=== PATIENT | female | born 1995 | race Caucasian/White ===

== ENCOUNTER 2024-11-02 09:52 | Outpatient (CLI) | payer OTHER ==
[2024-11-02 11:09] LABS: Hematocrit 38.1 % (34.9-44.5); Hemoglobin 13.5 g/dL (12.0-15.5); Platelet Count 234 10x3/uL (150-450)
[2024-11-02 12:37] LABS: Hep B Surf Ag Non-Reactive S/CO (NonReactive)
[2024-11-02 12:39] LABS: Syphilis Antibody Index 0.04 S/CO (<1.00 Non-Reactive)
== END 2024-11-02 09:53 | disposition home or self-care (01) ==
LOC: CSHLAB 09:52
PROVIDERS: ATTEND Obstetrics & Gynecology
DX: Z01.812 Encounter for preprocedural laboratory examination (principal); Z98.891 History of uterine scar from previous surgery
CPT/HCPCS: 36416; 85014; 85018; 85049; 86780; 86850; 86900; 86901; 87340

== ENCOUNTER 2024-11-05 05:23 | Inpatient (IN) | payer OTHER ==
[2024-11-05] MEDS ORDERED: Methylergonovine 0.2 MG/ML VIAL IM PRN (07:06)
[2024-11-05] MEDS ORDERED: Carboprost 250 MCG/ML AMP IM PRN (07:06)
[2024-11-05] MEDS ORDERED: hydrALAZINE 20 MG/ML VIAL SLOW IVP PRN ×2 (07:06→10:37)
[2024-11-05] MEDS ORDERED: Diphenoxylate HCl/Atropine Tablet PO PRN ×2 (07:06)
[2024-11-05] MEDS ORDERED: Tranexamic Acid 1,000 MG/10 ML VIAL IVP PRN (07:06)
[2024-11-05] MEDS ORDERED: Ondansetron PF 4 MG/2 ML Vial IVP PRN ×3 (07:06→09:04)
[2024-11-05] MEDS ORDERED: Bicitra 30 ML UDCUP PO PRN (07:06)
[2024-11-05] MEDS ORDERED: Famotidine/PF 20 mg/2ml Vial SLOW IVP PRN (07:06)
[2024-11-05] MEDS ORDERED: Oxytocin 30 units/NS 500 ML 500 ML IV SCH (07:06)
[2024-11-05 07:07] VITALS: BMI 24.2
[2024-11-05] MEDS ORDERED: Meperidine HCl/PF 25 MG (1 mL) VIAL SLOW IVP PRN (09:04)
[2024-11-05] MEDS ORDERED: Ketorolac Tromethamine 30 MG (1 mL) VIAL IVP SCH (09:15)
[2024-11-05] MEDS ORDERED: Communication Order-Pharmacy FS SCH (09:15)
[2024-11-05] MEDS ORDERED: Simethicone Chewable 80 MG TAB PO PRN (10:37)
[2024-11-05] MEDS ORDERED: diphenhydrAMINE 25 MG CAP PO PRN (10:37)
[2024-11-05] MEDS ORDERED: Bisacodyl 10 MG SUPP PR PRN (10:37)
[2024-11-05] MEDS ORDERED: Lanolin Ointment 7 GM TUBE TOP PRN (10:37)
[2024-11-05] MEDS: Dexamethasone 10 MG/ML VIAL ONE (10:38)
[2024-11-05] MEDS: CEFAZOLIN 2 GM VIAL ONE (10:38)
[2024-11-05] MEDS: Erythromycin Base 0.5% Oint 1 GM TUBE ONE (10:38)
[2024-11-05] MEDS: Ketorolac Tromethamine 30 MG (1 mL) VIAL ONE (10:39)
[2024-11-05] MEDS: PHENYLEPHRINE-NS 100 MCG/ML 10 ML SYRINGE ONE ×2 (10:39)
[2024-11-05] MEDS: Oxytocin 10 UNITS/ML VIAL ONE ×2 (10:39→10:40)
[2024-11-05] MEDS: Ondansetron PF 4 MG/2 ML Vial ONE (10:39)
[2024-11-05] MEDS: Ketorolac Tromethamine 30 MG (1 mL) VIAL IVP SCH (10:40)
[2024-11-05] MEDS: Boostrix 0.5 ML (Tdap) VIAL (>/=7 yrs of age) IM ONE (12:02)
[2024-11-05] MEDS: diphenhydrAMINE 50 MG/ML VIAL IVP PRN (14:01)
[2024-11-06 05:45] LABS: Hematocrit 27.1 % (34.9-44.5); Hemoglobin 9.6 g/dL (12.0-15.5); Mean Corpuscular Hemoglobin 31.4 pg (27.0-33.0); Mean Corpuscular Volume 88.6 fL (81.6-98.3); Platelet Count 199 10x3/uL (150-450); Red Blood Cell (RBC) Count 3.06 10x6/uL (3.90-5.03); White Blood Cell (WBC) Count 16.47 10x3/uL (3.5-10.5)
[2024-11-06] MEDS: HYDROcodone/Acetaminophen 5/325 mg Tablet PO PRN ×2 (13:14→23:20)
[2024-11-06] MEDS: Ibuprofen 800 MG TAB PO SCH (15:01)
[2024-11-06] MEDS: Acetaminophen 325 MG TAB PO PRN (21:59)
[2024-11-07 08:14] VITALS: BP 115/73; TEMP 98.1
== END 2024-11-07 11:30 | disposition home or self-care (01) | DRG 788 ==
LOC: CSHLD 05:23 → CSHPED 11:15
PROVIDERS: ADMIT Obstetrics & Gynecology; ATTEND Obstetrics & Gynecology
PROC: 10D00Z1 Extraction of Products of Conception, Low, Open Approach (ICD-10-PCS; principal; 2024-11-05)
PROC: 4A1HXCZ Monitoring of Products of Conception, Cardiac Rate, External Approach (ICD-10-PCS; 2024-11-05)
DX: O34.211 Maternal care for low transverse scar from previous cesarean delivery (principal); Z3A.39 39 weeks gestation of pregnancy; Z37.0 Single live birth
CPT/HCPCS: 51702; 85027; J1100; J1200; J1885; J2274; J2405; J2550; J2590; J3010